=== PATIENT | male | born 1995 | race Caucasian/White ===

== ENCOUNTER 2022-11-02 08:43 | Emergency (ER) | payer OTHER, SELFPAY ==
--- NOTE | ~2022-11-02 | XR_ITS ---
EXAMINATION: XR SACRUM AND COCCYX, 3 VIEWS XR LUMBAR SPINE, 3 VIEWS CLINICAL INFORMATION: Pain COMPARISON: Lumbar spine radiograph from 01/08/2013 TECHNIQUE: 3 views of the sacrum and coccyx 3 views of the lumbar spine FINDINGS: 5 nonrib-bearing lumbar-type vertebral bodies. No acute visible fracture or dislocation. Lower lumbar spine facet arthropathy. Bilateral sacroiliac joints are patent. Questionable cortical thickening/irregularity along the distal sacrum just proximal to the sacrococcygeal junction which may be accentuated secondary to angulation/image acquisition technique. Correlation with point tenderness. Vertebral body heights and disc spaces are otherwise maintained. Posterior elements are intact. Paraspinal soft tissues are unremarkable. Bowel gas is unremarkable. Pelvic phleboliths are noted. XR/XR lumbar spine 2-3V IMPRESSION: 1. No acute visible fracture or dislocation. 2. Questionable cortical thickening/irregularity along the distal sacrum just proximal to the sacrococcygeal junction which may be accentuated secondary to angulation/image acquisition technique. Correlation with point tenderness. 3. Lower lumbar spine facet arthropathy. 4. Bilateral sacroiliac joints are patent. 5. Pelvic phleboliths are noted.
--- NOTE | ~2022-11-02 | XR_ITS ---
EXAMINATION: XR SACRUM AND COCCYX, 3 VIEWS XR LUMBAR SPINE, 3 VIEWS CLINICAL INFORMATION: Pain COMPARISON: Lumbar spine radiograph from 01/08/2013 TECHNIQUE: 3 views of the sacrum and coccyx 3 views of the lumbar spine FINDINGS: 5 nonrib-bearing lumbar-type vertebral bodies. No acute visible fracture or dislocation. Lower lumbar spine facet arthropathy. Bilateral sacroiliac joints are patent. Questionable cortical thickening/irregularity along the distal sacrum just proximal to the sacrococcygeal junction which may be accentuated secondary to angulation/image acquisition technique. Correlation with point tenderness. Vertebral body heights and disc spaces are otherwise maintained. Posterior elements are intact. Paraspinal soft tissues are unremarkable. Bowel gas is unremarkable. Pelvic phleboliths are noted. XR/XR sacrum coccyx min 2V IMPRESSION: 1. No acute visible fracture or dislocation. 2. Questionable cortical thickening/irregularity along the distal sacrum just proximal to the sacrococcygeal junction which may be accentuated secondary to angulation/image acquisition technique. Correlation with point tenderness. 3. Lower lumbar spine facet arthropathy. 4. Bilateral sacroiliac joints are patent. 5. Pelvic phleboliths are noted.
[2022-11-02 08:44] VITALS: BP 155/88; PULSE 90; RESP 16; TEMP 36.7; O2SAT 98; BMI 22.9
[2022-11-02] MEDS: Ketorolac Tromethamine 30 MG/ML VIAL IM (09:21)
--- NOTE | 2022-11-02 09:30 | ED.BACK ---
HPI - Back Pain/Injury General Chief Complaint: Back Pain/Injury Stated Complaint: lower back pain Time Seen by Provider: 11/02/22 09:01 Source: patient, family and RN notes reviewed Mode of arrival: ambulatory Limitations: no limitations History of Present Illness HPI Narrative: This is a 26-year-old male, with no known past medical history, presenting to the emergency department for evaluation low back x2 days. Patient reports that while he was doing body weight squats he squatted down immediately felt pain in his low back. He states that when this occurred he had blurred vision for approximately 2 seconds. He states that since this injury he has had constant back pain, worsening with sitting upright and relieved with lying down. He reports that the pain does not radiate. Denies any numbness or tingling into his groin. Denies any urinary or bowel incontinence. Denies any urinary or bowel retention. Denies dysuria, hematuria, urinary urgency or frequency. Denies any abdominal pain. He has been taking Tylenol and Motrin at home to treat his pain which has provided him without any relief. No history of back pain in the past. No other complaints or concerns at this time. MD elicited complaint: back pain Timing: constant Severity: moderate Similar Symptoms Previously: No Quality: aching Location: lumbar spine Radiation: none Exacerbating factors: none Relieving factors: none Context: bending Associated symptoms: denies other symptoms Treatments prior to arrival: NSAIDS Work related injury: No Related Data Previous Rx's Medication Instructions Recorded cyclobenzaprine 5 mg tablet 5 mg PO TID PRN muscle spasm #15 11/02/22 tabs ibuprofen 600 mg tablet 600 mg PO Q6H PRN pain #45 tabs 11/02/22 Allergies Allergy/AdvReac Type Severity Reaction Status Date / Time No Known Allergies Allergy Unverified 11/22/19 16:54 [No Known Allergies*] Review of Systems Review of Systems: Yes all other systems are reviewed and are negative Constitutional: Constitutional: Reports as per [facility] Social History Social History Advance Directives: No Physical Exam Vital Signs: Vital Signs: Last Vital Signs Temp 98.1 F 11/02/22 08:44 Pulse 90 11/02/22 08:44 Resp 16 11/02/22 08:44 BP 155/88 H 11/02/22 08:44 Pulse Ox 98 11/02/22 08:44 O2 Del Method Room Air 11/02/22 08:44 BMI result Body Mass Index 22.9 Const: General: cooperative, comfortable and no acute distress Orientation/consciousness: patient oriented x3 Limitations: no limitations HEENT: Head: Yes normal to inspection, Yes normocephalic and Yes atraumatic Ears: hearing grossly normal bilaterally General nose exam: Normal external nose present Face and sinus: Yes normal facial exam Mouth: Normal oral and palatal mucosa present, oropharynx normal and moist mucous membranes Throat: Yes posterior oropharynx normal Eyes: General: appearance normal, both eyes and all related structures Eyelids: Yes eyelids normal Conjunctivae: conjunctivae normal Sclerae: sclerae normal Pupils: Equal, round and reactive pupils present EOM: EOMs intact bilaterally Neck: Neck: Yes normal visual inspection, Yes full ROM and Yes no lymphadenopathy Lymphatic: no lymphadenopathy noted Chest: Chest palpation & inspection: normal inspection of the chest Resp: Effort & Inspection: normal respiratory effort and able to speak in complete sentences Auscultation: clear to auscultation bilaterally, no crackles, no rales, no rhonchi and no wheezes Cardio: Rate: regular rate Rhythm: regular rhythm Heart sounds: S1 normal heart sound present and S2 normal heart sound present GI: Other: Abdomen is soft, nontender, nondistended. Normoactive bowel sounds present in all 4 quadrants. Inspection: Yes normal to inspection : General: Yes no CVA tenderness Back/Spine/Pelvis: Other: No C-spine, T-spine, or L-spine tenderness, tenderness to palpation along the bilateral lumbar paraspinous muscles. Negative straight leg raise bilaterally. Back: no CVA tenderness Cervical Spine: normal cervical lordosis Thoracic/Lumbar Spine: thoracic and lumbar spine normal to inspection Skin: General skin exam: no rashes or lesions noted Trauma: no lacerations or abrasions Wounds: no wounds Neuro: General: patient oriented x3 and moves all extremities Cranial nerves: Yes Equal, round and reactive pupils present Extrem: General: Yes normal to inspection Right upper extremity: normal to inspection Left upper extremity: normal to inspection Right lower extremity: normal to inspection Left lower extremity: normal to inspection Course Reevaluation(s) Reevaluation #1: Patient has minimal relief with Toradol. X-rays reviewed as mild arthropathy. There was also question of sacral cortical thickening and to correlate clinically. Patient has no sacral or coccyx bony tenderness on examination. Symptoms are all lumbar pain. Discussed results with patient, advised gentle stretching, heat or ice, ibuprofen as well as muscle relaxants. Educated the importance of following up with primary care physician regarding this visit. Given referral to Orthopedics as he would benefit from physical therapy as well. Patient understands and agrees with plan. Patient given return precautions. Patient stable for discharge. Time: 11:00 Medications Administered Discontinued Medications Generic Name Dose Route Start Last Admin Trade Name Jarred PRN Reason Stop Dose Admin Ketorolac Tromethamine 30 mg 11/02/22 09:10 11/02/22 09:21 Ketorolac Tromethamine 30 Mg/Ml Vial IM 11/02/22 09:11 30 mg ONCE ONE Administration Medical Decision Making Medical Decision Making MDM Narrative: 26-year-old male presenting to the emergency department for evaluation of low back pain since Tuesday afternoon after performing body weight squats. This patient presents with back pain most consistent with lumbar muscle strain. Differential diagnoses includes lumbago versus musculoskeletal spasm / strain versus sciatica. No back pain red flags on history or physical. Presentation not consistent with malignancy (lack of history of malignancy, lack of B symptoms), fracture (no trauma, no bony tenderness to palpation), cauda equina syndrome (no bowel or urinary incontinence/retention, no saddle anesthesia, no distal weakness), pyelonephritis (afebrile, no CVAT, no urinary symptoms). Given the clinical picture, will obtain x-rays to ensure no malalignment. Plan: L spine, sacrum and coccyx x-rays, Toradol 30 mg IM Differential Diagnosis Differential Diagnoses: The differential diagnosis associated with the presentation includes See above Discharge Plan Discharge Clinical Impression: Strain of lumbar region, Lumbar paraspinal muscle spasm Patient Disposition: Home, Self-Care Instructions: Acute Low Back Pain (ED), Lower Back Exercises (ED) Additional Instructions: Your lumbar x-rays did show mild arthritis. Please rest, ice or heat, gently massage your back, and gently stretch your back for relief. Take ibuprofen as directed as needed for pain. Take muscle relaxants as directed, please be advised that this can cause drowsiness, do not drink alcohol or drive while taking this medication. Please follow-up with your primary care physician regarding visit. I am also giving your referral to Orthopedics if your symptoms persist, call to make an appointment. If any new or worsening symptoms occur including but not limited to worsening back pain, numbness and tingling into your groin or any urinary symptoms, please return for re-evaluation. Prescriptions: New ibuprofen 600 mg tablet 600 mg PO Q6H PRN (Reason: pain) Qty: 45 0RF cyclobenzaprine 5 mg tablet 5 mg PO TID PRN (Reason: muscle spasm) Qty: 15 0RF Referrals: [facility] [place] [facility] Surgeons [Provider Group]
--- NOTE | 2022-11-02 09:34 | PC.NURSE ---
[id number] calm cooperative. no respir distress. sitting upright w/lower back pain. +CSM. no numbness/tingling.
[2022-11-02 11:09] VITALS: BP 133/75; PULSE 80; RESP 12; O2SAT 98
== END 2022-11-02 11:16 | disposition home or self-care (01) ==
PROVIDERS: Emergency Provider Student in an Organized Health Care Education/Training Program
DX: S39.012A Strain of muscle, fascia and tendon of lower back, initial encounter (principal); R25.2 Cramp and spasm; M53.3 Sacrococcygeal disorders, not elsewhere classified; X58.XXXA Exposure to other specified factors, initial encounter; Y93.9 Activity, unspecified; Y92.9 Unspecified place or not applicable; Y99.9 Unspecified external cause status
CPT/HCPCS: 72100; 72220; 96372; 99284; J1885